=== PATIENT | male | born 1995 | race Caucasian/White ===

== ENCOUNTER 2018-11-09 13:06 | Outpatient (CLI) | payer BC ==
--- NOTE | 2018-11-09 14:51 | RAD ---
LUMBAR SPINE 2 VIEWS: Date: 11/09/18 HISTORY: M54.5, low back pain. COMPARISON: Lumbar spine radiographs from 2014. FINDINGS: Mild narrowing of the L5-S1 disc space. No acute fracture or malalignment. No listhesis. No translation with flexion or extension. IMPRESSION: 1. No significant listhesis with flexion or extension. 2. Some low grade degenerative disc space narrowing of lower lumbar spine. POS: [facility]
== END 2018-11-09 13:07 | disposition home or self-care (01) ==
LOC: TBSIIMAG 13:06
PROVIDERS: ATTEND Neurological Surgery
DX: M54.5 Low back pain (principal); M48.061 Spinal stenosis, lumbar region without neurogenic claudication
CPT/HCPCS: 72100